=== PATIENT | female | born 1985 | race Caucasian/White ===

== ENCOUNTER 2020-08-04 19:18 | Emergency (ER) | payer MEDICAID ==
[~2020-08-04] VITALS: Ht 157.5 cm; Wt 64.9 kg
[2020-08-04 19:31] VITALS: BP 140/91; Ht 157.5 cm; Wt 64.9 kg
== END 2020-08-04 20:17 | disposition home or self-care (01) ==
LOC: ED 19:18
DX: F41.9 Anxiety disorder, unspecified (principal); F32.9 Major depressive disorder, single episode, unspecified; R53.83 Other fatigue
CPT/HCPCS: 82962